=== PATIENT | male | born 1995 | race Caucasian/White ===

== ENCOUNTER 2020-05-28 02:15 | Emergency (ER) | payer MEDICAID ==
[~2020-05-28] VITALS: Ht 180.3 cm; Wt 117.6 kg
[2020-05-28] MEDS ORDERED: ONDANSETRON 2MG/ML, 2ML ONE (02:47)
[2020-05-28] MEDS ORDERED: LORazepam 2 MG/ML, 1ML ONE (02:49)
[2020-05-28] MEDS ORDERED: PANTOPRAZOLE 40 MG IV ONE (02:49)
[2020-05-28 02:58] LABS: BASOPHILS % (AUTO) 1 % (0-1); EOSINOPHILS % (AUTO) 1 % (1-7); LYMPHOCYTES % (AUTO) 35 % (22-44); MEAN CORPUSCULAR HEMOGLOBIN 29.6 pg (27.5-34.5); MEAN PLATELET VOLUME 7.4 fL (7.4-10.4); MONOCYTES % (AUTO) 7 % (2-9); NEUTROPHILS % (AUTO) 56 % (42-75); PLATELET COUNT 315 x10^3/uL (130-400); RED BLOOD COUNT 5.81 x10^6/uL (4.38-5.82); RED CELL DISTRIBUTION WIDTH 13.9 % (9.4-14.8)
[2020-05-28] MEDS ORDERED: SODIUM CHLORIDE 0.9% 1,000ML IVBOLUS ONE (03:00)
[2020-05-28] MEDS ORDERED: LORazepam 2 MG/ML, 1ML IVPush ONE (03:00)
[2020-05-28] MEDS ORDERED: ONDANSETRON 2MG/ML, 2ML IVPush ONE (03:00)
[2020-05-28] MEDS ORDERED: PANTOPRAZOLE 40 MG IV IVPush ONE (03:00)
[2020-05-28] MEDS ORDERED: SODIUM CHLORIDE FLUSH 10ML SYR IVF ONE (03:00)
--- NOTE | 2020-05-28 03:00 | NUR ---
BEDSIDE REPORT FROM DEV RN, ASSUMING CARE OF PT AT THIS TIME.
[2020-05-28 03:01] LABS: MD NO
[2020-05-28 03:02] LABS: GASTRIC OCCULT BLD POSITIVE (NEGATIVE); GASTRIC PH 2 (1-7)
[2020-05-28 03:08] LABS: INTERNATIONAL NORMALIZED RATIO 0.98 (0.93-1.1); PROTHROMBIN TIME 10.4 Seconds (9.6-11.5)
[2020-05-28 03:36] LABS: ALBUMIN 3.7 g/dL (3.4-5.0); ANION GAP 9 mmol/L (5-15); CALCIUM 7.9 mg/dL (8.5-10.1); CHLORIDE 111 mmol/L (98-107)
[2020-05-28 03:40] LABS: ALANINE AMINOTRANSFERASE 82 U/L (12-78); ALKALINE PHOSPHATASE 68 U/L (45-117); BILIRUBIN,TOTAL 0.4 mg/dL (0.2-1.0); CREATININE 0.98 mg/dL (0.7-1.3); TOTAL PROTEIN 7.6 g/dL (6.4-8.2)
[2020-05-28 05:41] VITALS: BP 116/58
--- NOTE | 2020-05-28 05:42 | NUR ---
Patient/Caregiver given discharge instructions and they have confirmed that they understand the instructions. Patient ambulatory with steady gait. both piv dc prior to pt leaving er.
== END 2020-05-28 05:43 | disposition home or self-care (01) ==
LOC: ED 05:21
DX: K29.21 Alcoholic gastritis with bleeding (principal); K92.0 Hematemesis; F10.229 Alcohol dependence with intoxication, unspecified; R00.0 Tachycardia, unspecified; F17.210 Nicotine dependence, cigarettes, uncomplicated; Y90.9 Presence of alcohol in blood, level not specified
CPT/HCPCS: 36415; 71045; 80053; 80307; 82271; 83690; 85025; 85610; 85730; 86850; 86900; 93005; 96361; 96374; 96375; 99285; 99406; C9113; J2405; J7030

== ENCOUNTER 2020-06-06 13:43 | Emergency (ER) | payer MEDICAID ==
[~2020-06-06] VITALS: Ht 195.6 cm; Wt 118.7 kg
--- NOTE | 2020-06-06 14:23 | NUR ---
PT C/O DRY OCCASIONAL DRY COUGH AND SOB. PT EXPOSED TO COVID POSITIVE PERSON A WEEK AGO. PT ATTEMPTED TO DO A DRIVE THROUGH COVID SWABBING AND WAS ADVISED TO COME TO ER. PT DENIES HAVING TEMP OR SORE THROAT TODAY. PT STATES HE MAY HAVE A HAD TEMP ONE TIME, BUT UNSURE. PT TOOK IBUPROFEN THIS AM DUE TO FEELING HOT.
--- NOTE | 2020-06-06 14:28 | NUR ---
PT STATES HE HAS LOWER LEFT ABD PAIN FROM DIAGNOSED ULCER. PT STATES THE DISCOMFORT IS NORMAL FOR HIM.
[2020-06-06 14:29] VITALS: BP 145/93
[2020-06-06] MEDS ORDERED: DEXAMETHASONE 4 MG TABLET PO ONE (15:00)
--- NOTE | 2020-06-06 16:04 | NUR ---
PT REC'VD DISCHARGE INSTRUCTIONS AND EDUCATION. PT HAD NO FURTHER QUESTIONS. PT AMBULATED TO DISCHARGE AREA, STEADY GAIT.
== END 2020-06-06 16:06 | disposition home or self-care (01) ==
LOC: ED 14:16
DX: J15.9 Unspecified bacterial pneumonia (principal); Z20.828 Contact with and (suspected) exposure to other viral communicable diseases; R00.0 Tachycardia, unspecified; F17.200 Nicotine dependence, unspecified, uncomplicated
CPT/HCPCS: 71045; 87635; 93005; 99285